=== PATIENT | male | born 1960 | race Two or more races ===

== ENCOUNTER 2019-12-26 16:13 | Inpatient (IN) | payer MEDICAID, MEDICARE, OTHER ==
[~2019-12-26] VITALS: Ht 165.1 cm; Wt 64.0 kg
[2019-12-26] MEDS: MIDAZOLAM DRIP 50 mg/50mL 50 ML IV SCH (16:10)
[2019-12-26] MEDS ORDERED: PROPOFOL 100 ML IV ONE (16:46)
[2019-12-26] MEDS ORDERED: SODIUM BICARBONATE 8.4 % INJ 50ML VIAL IV ONE ×2 (17:00→18:45)
[2019-12-26] MEDS: PROPOFOL 100 ML IV SCH ×2 (17:00→19:09)
[2019-12-26 17:24] LABS: Basophils # (auto) 0.1 10 ^3/uL (0-0.2); Hemoglobin 13.2 g/dL (13.5-17.5); Lymphocytes # (auto) 2.4 10 ^3/uL (0.4-5.4)
[2019-12-26 17:26] LABS: Basophils % (auto) 0.6 % (0.0-2.0); Eosinophils # (auto) 0 10 ^3/uL (0-0.8); Eosinophils % (auto) 0.3 % (0.0-7.0); Hematocrit 40.7 % (41.0-53.0); Lymphocytes % (auto) 19.6 % (10.0-50.0); Mean Corpuscular Hemoglobin 33.6 pg (28.0-32.0); Mean Corpuscular Hgb Conc. 32.5 g/dL (32.0-36.0); Mean Corpuscular Volume 103.3 fL (80.0-100.0); Neutrophils # (auto) 8.8 10 ^3/uL (1.6-8.6); Neutrophils % (auto) 71.5 % (37.0-80.0); Platelet Count (auto) 116 10^3/uL (140-450); Red Blood Cells 3.94 10^6/uL (4.5-5.90); Red Cell Distribution Width 15.8 % (11.8-14.3); White Blood Cell 12.3 10^3/uL (4.4-10.8)
[2019-12-26 17:34] LABS: Albumin 3.6 g/dL (3.4-5.0); Calcium 10.6 mg/dL (8.5-10.1); Magnesium 2.9 mg/dL (1.6-2.6)
[2019-12-26 17:38] LABS: BUN/Creatinine Ratio 6.4; Bilirubin, Total 1.5 mg/dL (0.2-1.0); Total Protein 8.6 g/dL (6.4-8.2)
[2019-12-26 17:47] LABS: Potassium 6.5 mmol/L (3.5-5.1)
[2019-12-26] MEDS ORDERED: MIDAZOLAM DRIP 50 mg/50mL 50 ML IV ONE (17:58)
[2019-12-26 18:00] VITALS: BP 159/86
[2019-12-26] MEDS: fentaNYL Drip 2500mCg/250mlNS 250 ML IV SCH (18:00)
[2019-12-26] MEDS ORDERED: ALBUTEROL SULF 2.5 MG/0.5ML(0.5%) NEB SOLN NEB ONE (18:45)
[2019-12-26] MEDS ORDERED: NITROGLYCERIN 0.4 MG SL TAB SL PRN (18:45)
[2019-12-26] MEDS ORDERED: CALCIUM GLUC 4.65meq/50ml D5AE 50 ML IV ONE (18:45)
[2019-12-26] MEDS ORDERED: MORPHINE SULF INJ 2 MG/ML SYRINGE 1ML IV PRN (18:45)
[2019-12-26] MEDS ORDERED: InsuLIN REG 1unit/0.01ml Soln (100units/ml) IV ONE (18:45)
[2019-12-26] MEDS ORDERED: DEXTROSE (50%) 50ML SYRG IV ONE (18:45)
[2019-12-26 20:00] VITALS: BP 120/66
[2019-12-26] MEDS ORDERED: SODIUM CHL 0.9% 1000 ML BAG XX ONE (20:15)
[2019-12-26] MEDS ORDERED: HEPARIN SODIUM (PORCINE) 5000 UNITS/ML 1ML VIAL ONE (20:30)
[2019-12-26] MEDS ORDERED: ALBUMIN 25% 100 ML IV ONE (20:30)
[2019-12-26] MEDS: NOREPINEPHRINE 8 MG/250ML KIT 250 ML IV SCH (20:57)
[2019-12-26 22:00] VITALS: BP 115/57
[2019-12-26 23:00] LABS: BUN/Creatinine Ratio 6.1; Calcium 9.5 mg/dL (8.5-10.1)
[2019-12-27] VITALS (34 sets, daily range): BP systolic 106–151; BP diastolic 55–85
[2019-12-27 00:20] LABS: Basophils # (auto) 0 10 ^3/uL (0-0.2); Basophils % (auto) 0.2 % (0.0-2.0); Eosinophils # (auto) 0 10 ^3/uL (0-0.8); Hematocrit 31.1 % (41.0-53.0); Hemoglobin 10.5 g/dL (13.5-17.5); Lymphocytes # (auto) 0.7 10 ^3/uL (0.4-5.4); Lymphocytes % (auto) 5.4 % (10.0-50.0); Mean Corpuscular Hemoglobin 33.2 pg (28.0-32.0); Mean Corpuscular Hgb Conc. 33.8 g/dL (32.0-36.0); Mean Corpuscular Volume 98.3 fL (80.0-100.0); Monocytes # (auto) 1.1 10 ^3/uL (0-1.3); Monocytes % (auto) 8.6 % (0.0-12.0); Neutrophils # (auto) 11.1 10 ^3/uL (1.6-8.6); Neutrophils % (auto) 85.8 % (37.0-80.0); Platelet Count (auto) 112 10^3/uL (140-450); Red Blood Cells 3.17 10^6/uL (4.5-5.90); Red Cell Distribution Width 14.8 % (11.8-14.3); White Blood Cell 12.9 10^3/uL (4.4-10.8)
[2019-12-27 00:38] LABS: Albumin 3.1 g/dL (3.4-5.0); BUN/Creatinine Ratio 5.5; Potassium 3.7 mmol/L (3.5-5.1)
[2019-12-27 00:43] LABS: Bilirubin, Total 1.7 mg/dL (0.2-1.0); Total Protein 7.3 g/dL (6.4-8.2)
[2019-12-27] MEDS: levoFLOXacin 250MG 50 ML IV SCH (02:44)
[2019-12-27 04:26] LABS: Basophils # (auto) 0 10 ^3/uL (0-0.2); Basophils % (auto) 0.3 % (0.0-2.0); Eosinophils # (auto) 0 10 ^3/uL (0-0.8); Eosinophils % (auto) 0.1 % (0.0-7.0); Hematocrit 29.7 % (41.0-53.0); Hemoglobin 10.1 g/dL (13.5-17.5); Lymphocytes % (auto) 9.9 % (10.0-50.0); Mean Corpuscular Hemoglobin 33.4 pg (28.0-32.0); Mean Corpuscular Volume 98.1 fL (80.0-100.0); Monocytes # (auto) 0.8 10 ^3/uL (0-1.3); Monocytes % (auto) 8.5 % (0.0-12.0); Neutrophils # (auto) 8.1 10 ^3/uL (1.6-8.6); Neutrophils % (auto) 81.2 % (37.0-80.0); Nucleated Red Blood Cells % 0.1 %; Platelet Count (auto) 106 10^3/uL (140-450); Red Blood Cells 3.03 10^6/uL (4.5-5.90); Red Cell Distribution Width 15.4 % (11.8-14.3); White Blood Cell 9.9 10^3/uL (4.4-10.8)
[2019-12-27 06:06] LABS: INR 1.26 (0.9-1.15); Partial Thromboplastin Time 29.4 sec (23.64-32.05)
[2019-12-27] MEDS: fentaNYL Drip 2500mCg/250mlNS 250 ML IV SCH (07:51)
[2019-12-27] MEDS: MIDAZOLAM DRIP 50 mg/50mL 50 ML IV SCH (11:43)
--- NOTE | 2019-12-27 19:30 | NUR ---
REPORT RECEIVED AND ASSUMED CARE; SEE INTERVENTIONS FOR ASSESSMENT; SEE IV SPREADSHEET FOR GTTS; VS STABLE AT THIS TIME; PT. INTUBATED/SEDATED/VENTED; PT. NOTED TO HAVE ABSCESS-LIKE, RAISED AREA ON RT. YO-IT IS NOT OPENED AND HAS BEEN THERE SINCE ARRIVAL TO ER PER REPORT; PT. HAS LT. UA A-V FISTULA WITH POSITIVE BRUIT/THRILL AND A LT. FA A-V FISTULA WITH POSITIVE BRUIT/THRILL; WILL CONT. TO MONITOR.
[2019-12-27] MEDS: NOREPINEPHRINE 8 MG/250ML KIT 250 ML IV SCH (20:45)
[2019-12-27] MEDS: HEPARIN SODIUM (PORCINE) 5000 UNITS/ML 1ML VIAL SC SCH (22:00)
[2019-12-28] VITALS (94 sets, daily range): BP systolic 88–147; BP diastolic 48–76
--- NOTE | 2019-12-28 04:15 | NUR ---
PROVIDED PT. WITH COMPLETE BED BATH AND LINEN CHANGE; COOLING MEASURES INITIATED WITH ICE PACKS TO AXILLARY AREA, FAN ON, ROOM TEMP. COOLER; WILL CONT. TO MONITOR.
[2019-12-28 04:55] LABS: Basophils # (auto) 0 10 ^3/uL (0-0.2); Basophils % (auto) 0.4 % (0.0-2.0); Eosinophils # (auto) 0.1 10 ^3/uL (0-0.8); Hematocrit 31.8 % (41.0-53.0); Hemoglobin 10.7 g/dL (13.5-17.5); Lymphocytes # (auto) 0.6 10 ^3/uL (0.4-5.4); Lymphocytes % (auto) 6.7 % (10.0-50.0); Mean Corpuscular Hemoglobin 33.5 pg (28.0-32.0); Mean Corpuscular Hgb Conc. 33.8 g/dL (32.0-36.0); Monocytes # (auto) 1.1 10 ^3/uL (0-1.3); Monocytes % (auto) 11.2 % (0.0-12.0); Neutrophils # (auto) 7.8 10 ^3/uL (1.6-8.6); Neutrophils % (auto) 80.7 % (37.0-80.0); Nucleated Red Blood Cells % 0.1 %; Platelet Count (auto) 106 10^3/uL (140-450); Red Blood Cells 3.21 10^6/uL (4.5-5.90); Red Cell Distribution Width 15.4 % (11.8-14.3); White Blood Cell 9.7 10^3/uL (4.4-10.8)
[2019-12-28 06:07] LABS: BUN/Creatinine Ratio 5.6; Calcium 9.6 mg/dL (8.5-10.1); Magnesium 2.3 mg/dL (1.6-2.6)
[2019-12-28 06:10] LABS: Bilirubin, Total 1.4 mg/dL (0.2-1.0); Total Protein 7.2 g/dL (6.4-8.2)
[2019-12-28] MEDS ORDERED: DEXTROSE 50% SYRINGE 50 ML IV ONE (06:22)
[2019-12-28] MEDS ORDERED: SODIUM CHL 0.9% 1000 ML BAG XX ONE (07:00)
--- NOTE | 2019-12-28 08:00 | NUR ---
OPEN RECEIVED REPORT FROM NIGHT RNOZZIE. ASSUMED CARE OF ICU PATIENT, FULL CODE STATUS. PATIENT SEDATED ON VENT. CURRENT FIO2 AT 30%. PENDING HD FOR LATER ON THIS AM. SEE NOTES FOR FURTHER INFO. SEE RN ASSESSMENTS AND IV FLOW SHEET FOR GTT'S AND TITRATIONS MADE. SKIN REMAINS INTACT TO SACRAL AREA. WILL CONTINUE TO TURN PATIENT Q2HRS AND PRN. OFF LOADING PRESSURE AREAS WITH PILLOWS. WILL CONTINUE TO MONITOR.
--- NOTE | 2019-12-28 09:00 | NUR ---
DAUGHTER CALLED: UPDATE PASSWORD VERIFIED. DAUGHTER CALLED AND UPDATED ON PT'S CURRENT STATUS, SITUATION AND POC FOR TODAY. WILL CONTINUE TO MONITOR.
[2019-12-28] MEDS: fentaNYL Drip 2500mCg/250mlNS 250 ML IV SCH (09:45)
[2019-12-28] MEDS: HEPARIN SODIUM (PORCINE) 5000 UNITS/ML 1ML VIAL SC SCH ×2 (10:00→22:34)
--- NOTE | 2019-12-28 11:30 | NUR ---
DR. PEREZ AT BEDSIDE: ORDER GIVEN MD UPDATED ON PT'S STATUS, LABS AND CURRENT POC. ORDERS GIVEN AND TO BE CARRIED OUT. SEE CHART. MD TO CALL PATIENT'S DAUGHTER LATER ON TODAY. CONTINUE CARE.
[2019-12-28] MEDS: PANTOPRAZOLE 40 MG/10 ML VIAL INJ IV SCH (12:30)
--- NOTE | 2019-12-28 15:15 | NUR ---
DR. PORRAS AT BEDSIDE: UPDATE MD UPDATED ON PT'S STATUS. HD FINISHED TODAY AROUND 1205. HD RN, SKIP, REMOVED -2500 ML OF FLUID OFF PATIENT, SEE HD REPORT PLACED IN CHART FOR FURTHER PATIENT INFORMATION.
[2019-12-28] MEDS ORDERED: Nepro With Carb Steady 1 Liter Bottle GT SCH (17:15)
[2019-12-28] MEDS ORDERED: DEXTROSE (50%) 50ML SYRG IV PRN (17:15)
[2019-12-28] MEDS: ACCU-CHEK COMFORT CURVE STRIP VI SCH ×2 (17:38→20:00)
[2019-12-28] MEDS: PROPOFOL 100 ML IV SCH (18:04)
--- NOTE | 2019-12-28 18:50 | NUR ---
DR. DOW AT BEDSIDE: ORDERS MD INFORMED ON PT'S TRENDING BLOOD GLUCOSE LEVELS. LAST BS 141 AFTER GIVING 1 AMP OF D50% X1 IVP PER PROTOCOL. BS WAS 52. MD GIVEN ORDERS TO START PATIENT ON D5W AT 10 ML/HR, SET RATE. WILL RELAY ORDER TO NOC RN. OTHER ORDERS GIVEN AND TO BE CARRIED OUT.
--- NOTE | 2019-12-28 19:00 | NUR ---
CLOSE PATIENT CONTINUES ON SEDATION AND ON VENTILATOR AT THIS TIME. CURRENT FIO2 AT 30%. CPAP TRIAL IN AM. REPORT TO BE GIVEN TO DAKOTA HORNE. TRANSFER CARE OVER AT THIS TIME. VSS.
--- NOTE | 2019-12-28 19:30 | NUR ---
report received and assumed care; see interventions for assessment; see iv spreadsheet for gtts; vs stable at this time; pt. temp= 99.2 rectally-cooling measures started with ice packs to axillary area, room temp cooler, and cool washcloth to forehead; will cont. to monitor.
[2019-12-28] MEDS: levoFLOXacin 250MG 50 ML IV SCH (19:56)
[2019-12-28] MEDS: InsuLIN REG 1unit/0.01ml Soln (100units/ml) SC SCH (20:00)
[2019-12-28] MEDS ORDERED: D5W 5% 1,000 ML IV SCH (20:15)
[2019-12-29] VITALS (90 sets, daily range): BP systolic 101–150; BP diastolic 48–71
[2019-12-29] MEDS: InsuLIN REG 1unit/0.01ml Soln (100units/ml) SC SCH ×6 (01:26→20:00)
[2019-12-29] MEDS: ACCU-CHEK COMFORT CURVE STRIP VI SCH ×6 (01:26→20:00)
[2019-12-29 04:37] LABS: Calcium 9.1 mg/dL (8.5-10.1); Potassium 4.4 mmol/L (3.5-5.1)
[2019-12-29 04:44] LABS: BUN/Creatinine Ratio 4.6
--- NOTE | 2019-12-29 07:20 | NUR ---
OPENING NOTE SHIFT REPORT RECEIVED AND ASSUMED CARE OF PT FROM OZZIE DUNCAN
[2019-12-29] MEDS: PANTOPRAZOLE 40 MG/10 ML VIAL INJ IV SCH (10:42)
[2019-12-29] MEDS: HEPARIN SODIUM (PORCINE) 5000 UNITS/ML 1ML VIAL SC SCH ×2 (10:42→23:51)
[2019-12-29] MEDS ORDERED: ACETAMINOPHEN 650 mg PER 20 mL UD GT PRN (11:15)
--- NOTE | 2019-12-29 11:20 | NUR ---
DR. PEREZ AT BEDSIDE ORDERS RECEIVED
[2019-12-29] MEDS: DEXTROSE 10% 1,000 ML IV SCH (11:34)
[2019-12-29] MEDS: fentaNYL Drip 2500mCg/250mlNS 250 ML IV SCH (11:35)
[2019-12-29] MEDS ORDERED: CARVEDILOL 3.125 MG TAB GT ONE (13:30)
--- NOTE | 2019-12-29 14:00 | NUR ---
CHELI SWAIN AT BEDSIDE ORDERS RECEIVED
--- NOTE | 2019-12-29 15:40 | NUR ---
DR. DOW AT BEDSIDE ORDERS RECEIVED
--- NOTE | 2019-12-29 16:25 | NUR ---
Pt is currently intubated and unable to complete assessment. Pt has a daughter, cody, but pt resided alone. Telephoned daughter but no answer and unable to leave a voicemail. Pt is affiliated with [facility] in [place]. SS will attempt to contact daughter to obtain additional information and followup with discharge plan once pt more medically stable. Addendum: 12/29/19 at 1627 by ALBERT IBANEZ SS Amended: Links added.
--- NOTE | 2019-12-29 17:30 | NUR ---
COOLING MEASURES INITIATED
--- NOTE | 2019-12-29 17:30 | NUR ---
DR. PENALOZA AT BEDSIDE NO NEW ORDERS AT THIS TIME
--- NOTE | 2019-12-29 19:15 | NUR ---
CLOSING NOTE SHIFT REPORT GIVE BACK AND CARE ENDORSED TO OZZIE DUNCAN
--- NOTE | 2019-12-29 19:30 | NUR ---
REPORT RECEIVED AND ASSUMED CARE; SEE INTERVENTIONS FOR ASSESSMENT; VS STABLE AT THIS TIME; T= 99/RECTALLY AND COOL WASHCLOTH TO FOREHEAD AND ROOM TEMPERATURE LOWERED; PT. INTUBATED/VENTED/SEDATED; SEE IV SPREADSHEET FOR GTTS; WILL CONT. TO MONITOR.
[2019-12-29] MEDS: CARVEDILOL 3.125 MG TAB GT SCH (23:50)
[2019-12-30] VITALS (70 sets, daily range): BP systolic 93–182; BP diastolic 47–87
--- NOTE | 2019-12-30 01:25 | NUR ---
ROUNDED: COVERING ASSIGNED RN FOR LUNCH. PATIENT RESTING IN BED WITH EYES CLOSED, NO PAIN BEHAVIORS IDENTIFIED. VSS. WILL ENDORSE CARE BACK TO ASSIGNED RN
[2019-12-30] MEDS: InsuLIN REG 1unit/0.01ml Soln (100units/ml) SC SCH ×5 (04:00→15:55)
[2019-12-30] MEDS: ACCU-CHEK COMFORT CURVE STRIP VI SCH ×5 (04:14→15:54)
[2019-12-30 04:53] LABS: Calcium 8.7 mg/dL (8.5-10.1); Potassium 4.4 mmol/L (3.5-5.1)
[2019-12-30 04:55] LABS: BUN/Creatinine Ratio 4.4
--- NOTE | 2019-12-30 07:15 | NUR ---
OPENING NOTE SHIFT REPORT GET BACK AND ASSUMED CARE OF PT FROM OZZIE DUNCAN
--- NOTE | 2019-12-30 08:40 | NUR ---
GOLF BALL TRIMMER AT BEDSIDE
--- NOTE | 2019-12-30 08:50 | NUR ---
SPOKE WITH PROCESS INSPECTOR REGARDING DARNELL LUTHER WHO WILL BE ON SITE TODAY AND WILL INFORM HIM OF COMING TO ICU TO INTERROGATE PT'S PACEMAKER
[2019-12-30] MEDS ORDERED: SODIUM CHL 0.9% 1000 ML BAG XX ONE (09:30)
[2019-12-30] MEDS: CARVEDILOL 3.125 MG TAB GT SCH (10:00)
[2019-12-30] MEDS: HEPARIN SODIUM (PORCINE) 5000 UNITS/ML 1ML VIAL SC SCH (10:00)
[2019-12-30] MEDS: PANTOPRAZOLE 40 MG/10 ML VIAL INJ IV SCH (10:00)
--- NOTE | 2019-12-30 10:30 | NUR ---
DARNELL THE REP IS AT BEDSIDE TO INTERROGATE PT'S AICD
--- NOTE | 2019-12-30 11:30 | NUR ---
DR. PEREZ AT BEDSIDE ORDERS RECEIVED
--- NOTE | 2019-12-30 12:30 | NUR ---
FOLDER GLUER OPERATOR COMPLETE. 2 LITERS REMOVED WITHOUT COMPLICATIONS. NO S/S OF DISTRESS. WILL CONTINUE TO MONITOR
--- NOTE | 2019-12-30 13:30 | NUR ---
DR. DOW AT BEDSIDE ORDERS RECEIVED
--- NOTE | 2019-12-30 14:00 | NUR ---
PT PLACED ON CPAP TRIAL. WILL CONTINUE TO MONITOR
--- NOTE | 2019-12-30 14:30 | NUR ---
COOLING MEASURES INITIATED
--- NOTE | 2019-12-30 15:31 | NUR ---
UNPLANNED EXTUBATION AT THIS TIME. PT PULLED ETT OUT. PLACED PT ON 40% COOL MIST AEROSOL. SPO2 97%. PT HAS STRONG COUGH. NO STRIDOR NOTED. RN AT BEDSIDE AND AWARE.
[2019-12-30] MEDS: DEXTROSE 10% 1,000 ML IV SCH (16:00)
--- NOTE | 2019-12-30 16:14 | NUR ---
NUTRITION ASSESSMENT NOTES Please refer to link notes of nutrition screen form filed under the intervention section of the plan of care for further details. Est. Energy Needs: 5373-0982 kcal (25-30 kcal/kg BW). Est. Protein Needs: 77-90 gms/day (1.2-1.4 gms/kg BW). Will continue to monitor pertinent labs and reassess nutrient need prn Addendum: 12/30/19 at [address] Amended: Links added.
--- NOTE | 2019-12-30 16:50 | NUR ---
CHELI SWAIN PAGED REGARDING PT'S RHYTHM
--- NOTE | 2019-12-30 17:19 | NUR ---
DR. PEREZ CALLED BACK ORDERS RECEIVED
[2019-12-30] MEDS ORDERED: HEPARIN DRIP/D5W 100UNITS/ML 250 ML IV SCH (17:55)
[2019-12-30] MEDS ORDERED: HEPARIN SODIUM (PORCINE) 5000 UNITS/ML 1ML VIAL IV ONE ×2 (18:00→19:30)
[2019-12-30] MEDS ORDERED: DIGOXIN 0.125 MG TAB PO ONE (18:00)
[2019-12-30] MEDS: fentaNYL Drip 2500mCg/250mlNS 250 ML IV SCH (18:04)
[2019-12-30] MEDS: levoFLOXacin 250MG 50 ML IV SCH (18:27)
--- NOTE | 2019-12-30 18:30 | NUR ---
HEPARIN STARTED AT 750 UNITS/HR BASED ON PROTOCOL
[2019-12-30 18:44] LABS: Basophils # (auto) 0 10 ^3/uL (0-0.2); Eosinophils # (auto) 0.1 10 ^3/uL (0-0.8); Hemoglobin 10.8 g/dL (13.5-17.5); Lymphocytes # (auto) 0.3 10 ^3/uL (0.4-5.4); Lymphocytes % (auto) 3.9 % (10.0-50.0); Mean Corpuscular Hemoglobin 34.3 pg (28.0-32.0); Monocytes # (auto) 0.8 10 ^3/uL (0-1.3); Platelet Count (auto) 118 10^3/uL (140-450)
[2019-12-30 18:46] LABS: Basophils % (auto) 0.2 % (0.0-2.0); Eosinophils % (auto) 0.8 % (0.0-7.0); Monocytes % (auto) 8.9 % (0.0-12.0); Neutrophils # (auto) 7.5 10 ^3/uL (1.6-8.6); Neutrophils % (auto) 86.2 % (37.0-80.0); Nucleated Red Blood Cells % 0.1 %; Red Blood Cells 3.16 10^6/uL (4.5-5.90); Red Cell Distribution Width 15.1 % (11.8-14.3); White Blood Cell 8.7 10^3/uL (4.4-10.8)
[2019-12-30] MEDS ORDERED: DIGOXIN (250MCG/ML) 2 ML AMPULE IV ONE (19:00)
[2019-12-30 19:09] LABS: INR 1.07 (0.9-1.15); Partial Thromboplastin Time 31.6 sec (23.64-32.05)
--- NOTE | 2019-12-30 19:20 | NUR ---
Report received from DAKOTA Jacobsen. Patient self extubated today; and, patient continuously removes simple mask and CM cables. patient was in A-paced before self extubation, and since self extubation, patient in NSR. Patient pulled out OGT today as well. Patient had HD today and removed 2000 ml. Patient has D10 infusion at 30 ml/hr. DAKOTA Jacobsen will start Heparin drip protocol and communicated with Pharmacy during report. Will continue with POC; and, will continue to monitor VS & clinical status.
--- NOTE | 2019-12-30 19:20 | NUR ---
CLOSING NOTE SHIFT REPORT GIVEN AND CARE ENDORSED TO ANGELINA DUNCAN
--- NOTE | 2019-12-30 19:30 | NUR ---
Patient agitated. Patient pulled simple mask off and CM cables. Patient re-connected to CM and simple mask re-applied.
--- NOTE | 2019-12-30 19:37 | NUR ---
Patient again has removed simple mask, with SpO2 84-86%; also, patient removed CM cables. Patient instructed to keep oxygen mask on and not to remove CM cables. Simple mask re-applied and patient reconnected to CM.
--- NOTE | 2019-12-30 19:57 | NUR ---
Account Supervisor at bedside for initial shift assessment. Patient drowsy, SpO2 70% and slowly desaturating, RR 12 and slowly ceasing. No rise and fall of chest. Central Pulses palpable but weak. RT paged and immediately at bedside. RT bagging patient. Central pulses absent upon palpation. CODE DAVID CALLED AT 2018. Dr. Orellana at bedside.
--- NOTE | 2019-12-30 20:18 | NUR ---
CODE DAVID CALLED: SEE CODE BLUE RECORD.
[2019-12-30] MEDS ORDERED: SUCCINYLCHOLINE CHLORIDE 20 MG/ML 10ML VIAL IV ONE (20:30)
[2019-12-30] MEDS ORDERED: ETOMIDATE (2MG/ML) 20ML VIAL IV ONE (20:30)
[2019-12-30] MEDS ORDERED: NOREPINEPHRINE 8 MG/250ML KIT 250 ML IV SCH (20:38)
[2019-12-30] MEDS ORDERED: MIDAZOLAM DRIP 50 mg/50mL 50 ML IV SCH (20:38)
[2019-12-30] MEDS ORDERED: MIDAZOLAM DRIP 50 mg/50mL 0 ML IV ONE (20:40)
[2019-12-30] MEDS ORDERED: NOREPINEPHRINE 8 MG/250ML KIT 250 ML IV ONE (20:40)
--- NOTE | 2019-12-30 20:45 | NUR ---
family notified Call placed to [facility] at [phone], notified of pt status, request to come in to icu. Daughter verbalize understanding.
[2019-12-30] MEDS ORDERED: EPINEPHrine HCL 1 MG/10 ML SYRG IV ONE (20:56)
--- NOTE | 2019-12-30 20:57 | NUR ---
TIME OF : [address] CASTRO. NO ROSC.
--- NOTE | 2019-12-30 21:20 | NUR ---
[facility] (U[facility]) is called at [phone].
--- NOTE | 2019-12-30 21:51 | NUR ---
[facility] U[facility] states he will call back in one hour.
--- NOTE | 2019-12-30 21:51 | NUR ---
Master Sonar Technician office called at [phone]. Report time of and name. Master Sonar Technician office sales representative education courses states they will put a call out.
[2019-12-30] MEDS ORDERED: AMIODARONE HCL 200 MG TAB PO SCH (22:00)
[2019-12-30] MEDS ORDERED: ATORVASTATIN 20 MG TAB PO SCH (22:00)
--- NOTE | 2019-12-30 22:47 | NUR ---
Compensation Coordinator Denise Storey return call for updated information. Compensation Coordinator Case relaease body. Compensation Coordinator's .
--- NOTE | 2019-12-30 23:21 | NUR ---
[facility] Lexie called back for updated information and if body is still in ICU. Lexie updated with requested information and stated [facility] will call back in one hour to see if body is in ICU.
--- NOTE | 2019-12-30 23:33 | NUR ---
Patient complain of 05/21 MADDOX. Patient medicated with [place]ner[place] 12.5 mg IVP & Morphine 2 mg IVP. Addendum: 12/30/19 at 2343 by Mitchel Osuna RN Charted on wrong patient.
--- NOTE | 2019-12-31 00:35 | NUR ---
Family has made and Mortuary arrangements. George Rodriguez. [facility] states 2-3 hours before pepper picker of body.
--- NOTE | 2019-12-31 00:52 | NUR ---
[facility] Chris called keno writer for update status of location of body.
--- NOTE | 2019-12-31 02:10 | NUR ---
Family left bedside. [facility] regarding E[facility]. Answering Service will call back with ETA.
--- NOTE | 2019-12-31 02:20 | NUR ---
George Rodriguez Answering Service return call and stated ETA 0330.
--- NOTE | 2019-12-31 02:20 | NUR ---
ETT removed. TLC removed. CM lead pads removed. Defibrillator Pads removed. body placed in body bag.
--- NOTE | 2019-12-31 03:25 | NUR ---
Geroge Rodriguez [facility] at bedside. Patient transferred to [facility].
--- NOTE | 2019-12-31 03:32 | NUR ---
Patient OTD via [facility].
--- NOTE | 2019-12-31 03:41 | NUR ---
daughter Tiera Chaudhry [phone] called and informed the [facility] have seed packer her father and is enroute to [facility].
[2019-12-31] MEDS ORDERED: ASPirin-EC 81 mg tab PO SCH (10:00)
[2020-01-02] MEDS ORDERED: DIGOXIN 0.125 MG TAB PO SCH (10:00)
== END 2019-12-30 20:57 | disposition expired | DRG 130 ==
LOC: EDBD 16:13 → ER 16:16 → TELE 16:17 → ICU WEST 12-27 16:35
PROVIDERS: ADMIT Nurse Practitioner Acute Care; ATTEND Internal Medicine
PROC: 5A1955Z Respiratory Ventilation, Greater than 96 Consecutive Hours (ICD-10-PCS; principal; 2019-12-26)
PROC: 0BH17EZ Insertion of Endotracheal Airway into Trachea, Via Natural or Artificial Opening (ICD-10-PCS; 2019-12-26)
PROC: 5A1D70Z Performance of Urinary Filtration, Intermittent, Less than 6 Hours Per Day (ICD-10-PCS; 2019-12-26)
PROC: 5A1D70Z Performance of Urinary Filtration, Intermittent, Less than 6 Hours Per Day (ICD-10-PCS; 2019-12-28)
PROC: 5A1D70Z Performance of Urinary Filtration, Intermittent, Less than 6 Hours Per Day (ICD-10-PCS; 2019-12-30)
DX: J96.00 Acute respiratory failure, unspecified whether with hypoxia or hypercapnia (principal); I46.9 Cardiac arrest, cause unspecified; J69.0 Pneumonitis due to inhalation of food and vomit; E11.641 Type 2 diabetes mellitus with hypoglycemia with coma; G93.41 Metabolic encephalopathy; I21.A1 Myocardial infarction type 2; I50.43 Acute on chronic combined systolic (congestive) and diastolic (congestive) heart failure; E87.2 Acidosis; D63.8 Anemia in other chronic diseases classified elsewhere; G93.1 Anoxic brain damage, not elsewhere classified; D69.6 Thrombocytopenia, unspecified; E11.22 Type 2 diabetes mellitus with diabetic chronic kidney disease; N18.6 End stage renal disease; I47.2 Ventricular tachycardia; I13.2 Hypertensive heart and chronic kidney disease with heart failure and with stage 5 chronic kidney disease, or end stage renal disease; I42.0 Dilated cardiomyopathy; R65.10 Systemic inflammatory response syndrome (SIRS) of non-infectious origin without acute organ dysfunction; E87.5 Hyperkalemia; D72.829 Elevated white blood cell count, unspecified; Z99.2 Dependence on renal dialysis; I25.10 Atherosclerotic heart disease of native coronary artery without angina pectoris; Z95.810 Presence of automatic (implantable) cardiac defibrillator; V89.2XXA Person injured in unspecified motor-vehicle accident, traffic, initial encounter; Y93.89 Activity, other specified; Y92.89 Other specified places as the place of occurrence of the external cause; Y99.8 Other external cause status; Z95.1 Presence of aortocoronary bypass graft; Z79.899 Other long term (current) drug therapy
CPT/HCPCS: 31500; 36415; 36556; 36600; 70450; 71045; 80048; 80053; 80061; 80320; 82805; 82962; 83036; 83735; 83880; 84443; 84484; 85025; 85610; 85730; 87040; 87070; 87081; 87205; 90935; 93005; 93306; 94002; 94003; 94640; 95819; 99291; C9113; G0378; J0330; J0610; J1642; J2250; J2704; J7060; P9047